=== PATIENT | female | born 1985 | race Asian ===

== ENCOUNTER 2021-12-09 18:58 | Observation (INO) | payer OTHER, SELFPAY ==
[2021-12-09] VITALS (46 sets, daily range): BP systolic 98–184; BP diastolic 49–98; PULSE 82–164; RESP 0–40; TEMP 36.8; O2SAT 97–100; BMI 21.9
--- NOTE | 2021-12-09 19:04 | ED_ITS ---
HPI - Allergic Reaction General Chief complaint: Allergic Reaction Stated complaint: allergic reaction, SOB Time Seen by Provider: 12/09/21 19:03 Source: patient Mode of arrival: Ambulatory Limitations: no limitations History of Present Illness HPI narrative: This is a 36-year-old female with history of shellfish and alcohol sensitivity she states usually she just gets itching. She had both today at the same time about an hour prior to arrival about 30 minutes after that developed cough some narrowing or tightness sensation in her upper airway some shortness of breath in her chest and flushing. Patient denies any hives currently. She states she sort of coughing and vomited once from that. She denies any lip or tongue swelling currently. She feels like her airway is not quite as tight. She denies chest pain. She denies diarrhea. Patient states she has had both in conjunction in the past and not had this much of an reaction before. Related Data Allergies Allergy/AdvReac Type Severity Reaction Status Date / Time emerson Allergy Verified 12/09/21 19:05 shellfish derived Allergy Verified 12/09/21 19:05 Review of Systems Review of Systems ROS Unobtainable: All systems reviewed & are unremarkable except as noted in HPI and below Patient History Medical History Chronic migraine Enzyme disorder History of shingles Shellfish allergy Social History household members: significant other Smoking Status: Never smoker alcohol intake: current Exam Narrative Exam Narrative: GEN: well nourished, well appearing female, alert and oriented x 3, patient appears to be in moderate distress, patient appears flushed HEENT: Atraumatic, pupils are equal round reactive to light, extraocular movements are intact, nares are clear, TMs are clear with no fluid, there is no conjunctival pallor. Throat is clear without any exudates, erythema, tonsillar enlargement or uvular deviation, no swelling of lips, tongue or oral airway appreciated. HEART: Regular rate and rhythm without murmur, clicks, rubs. LUNGS:Lungs clear to auscultation, no wheezes, rales, crackles, chest moves symmetrically, patient does have dry cough. ABD:bowel sounds normal, soft, non-tender, no guarding, rebound, rigidity, no masses noted, no hepatosplenomegaly MSCL: Non-tender, no muscle atrophy, muscles strength 5/5 upper and lower extremities, full range of motion, normal gait NEURO:CN 2-12 intact, sensation rocky Initial Vital Signs Initial Vital Signs: Vital Signs Temperature 98.2 F 12/09/21 19:02 Pulse Rate 140 H 12/09/21 19:02 Respiratory Rate 40 H 12/09/21 19:02 Blood Pressure 153/88 H 12/09/21 19:02 Pulse Oximetry 97 12/09/21 19:02 Oxygen Delivery Method 12/09/21 19:02 Procedures Intubation Time out performed: Yes sedative: Ketamine (140) Mg Given: 140 paralytic: Succinylcholine (150) Mg Given: 150 Laryngoscope: fiber optic video scope ET Tube Size: 7 ET Tube Uncuffed: No Tube Secured Depth (cm): 22 Tube Secured Location: teeth Tube Placement Confirmation: Visualized tube passing through cords, Equal breath sounds bilaterally, No breath sounds over epigastrium, Confirmation by capnometry and Chest Xray Patient Tolerated Procedure: Well Course Orders Ordered: Acetaminophen (Acetaminophen 650 Mg Supp) 650 mg ME Q4HR PRN PRN Reason: Fever/Mild Pain (1-3) Chlorhexidine Gluconate (Chlorhexidine Gluconate 15 Ml Cup) 15 ml PO Q6HR [facility] Last Admin: 12/09/21 23:33 Dose: 15 ml Documented By: SOREN Dexamethasone (Dexamethasone 4 Mg/Ml Vial) 4 mg IV Q6HR [facility] Last Admin: 12/09/21 23:33 Dose: 4 mg Documented By: SOREN Diphenhydramine HCl (Diphenhydramine 50 Mg/Ml Vial) 25 mg IV TID [facility] Last Admin: 12/10/21 01:05 Dose: 25 mg Documented By: SOREN Enoxaparin Sodium (Enoxaparin 40 Mg/0.4 Ml Syringe) 40 mg SUBCUT DAILY [facility] Famotidine (Famotidine 20 Mg/2 Ml Vial) 20 mg IV BID [facility] Fentanyl (Fentanyl 100 Mcg/2 Ml Inj) 25 mcg IV Q1H PRN PRN Reason: Pain, Severe (7-10) Last Admin: 12/10/21 03:21 Dose: 25 mcg Documented By: Admin: 12/10/21 01:05 Dose: 25 mcg Documented By: Admin: 12/09/21 23:25 Dose: 25 mcg Documented By: Admin: 12/09/21 21:45 Dose: 25 mcg Documented By: Admin: 12/09/21 20:43 Dose: 25 mcg Documented By: AT Propofol (Propofol) 1,000 mg in 100 mls @ 1.905 mls/hr IV TITRATE OMARI; Protocol Last Admin: 12/10/21 01:38 Dose: 50 mcg/kg/min, 19.051 mls/hr Documented By: Titration: 12/10/21 00:52 Dose: 50 mcg/kg/min, 19.051 mls/hr Documented By: Titration: 12/09/21 22:10 Dose: 50 mcg/kg/min, 19.051 mls/hr Documented By: Titration: 12/09/21 22:03 Dose: 196.84 mcg/kg/min, 75 mls/hr Documented By: Titration: 12/09/21 21:33 Dose: 196.84 mcg/kg/min, 75 mls/hr Documented By: Admin: 12/09/21 20:15 Dose: 5 mcg/kg/min, 1.905 mls/hr Documented By: KMW Sodium Chloride (Normal Saline 0.9%) 1,000 mls @ 100 mls/hr IV CONT OMARI Stop: 12/10/21 08:00 Last Admin: 12/09/21 22:41 Dose: 100 mls/hr Documented By: SOREN Ketorolac Tromethamine (Ketorolac 30 Mg/Ml Vial) 15 mg IV Q6H PRN PRN Reason: Pain, Moderate (4-10) Stop: 12/12/21 20:44 Naloxone HCl (Naloxone 0.4 Mg/Ml Vial) 0.1 mg IV Q2MIN PRN PRN Reason: Opiate Reversal Ondansetron HCl (Ondansetron 4 Mg/2 Ml Inj) 4 mg IV Q8HR PRN PRN Reason: Nausea And Vomiting Discontinued Medications Diphenhydramine HCl (Diphenhydramine 50 Mg/Ml Vial) 25 mg IV NOW ONE Stop: 12/09/21 19:25 Last Admin: 12/09/21 19:36 Dose: 25 mg Documented By: BALWINDER Epinephrine (Racepinephrine 0.5 Ml Neb) 0.5 ml INH NOW ONE Stop: 12/09/21 19:40 Last Admin: 12/09/21 19:41 Dose: 0.5 ml Documented By: CHALO Epinephrine HCl (Epinephrine 1 Mg/Ml) 0.5 mg IM NOW ONE Stop: 12/09/21 19:04 Last Admin: 12/09/21 19:08 Dose: 0.5 mg Documented By: WILLIAM Epinephrine HCl (Epinephrine 1 Mg/Ml) 0.5 mg IM NOW ONE Stop: 12/09/21 19:33 Last Admin: 12/09/21 19:36 Dose: 0.5 mg Documented By: BALWINDER Epinephrine HCl (Epinephrine 1 Mg/Ml) 0.5 mg IM NOW ONE Stop: 12/09/21 19:43 Last Admin: 12/09/21 19:46 Dose: 0.5 mg Documented By: BALWINDER Famotidine (Famotidine 20 Mg/2 Ml Vial) 20 mg IV NOW [facility] Last Admin: 12/09/21 19:08 Dose: 20 mg Documented By: WILLIAM Sodium Chloride (Normal Saline 0.9%) 1,000 mls @ 1,000 mls/hr IV BOLUS PRN PRN Reason: Fluid replacement Last Admin: 12/09/21 19:37 Dose: 1,000 mls/hr Documented By: BALWINDER Methylprednisolone (Methylprednisolone 125 Mg/2 Ml Vial) 125 mg IV NOW ONE Stop: 12/09/21 19:04 Last Admin: 12/09/21 19:08 Dose: 125 mg Documented By: WILLIAM Ondansetron HCl (Ondansetron 4 Mg/2 Ml Inj) 4 mg IV NOW ONE Stop: 12/09/21 19:42 Last Admin: 12/09/21 19:42 Dose: 4 mg Documented By: BALWINDER Pantoprazole Sodium (Pantoprazole 40 Mg Vial) 40 mg IV DAILY [facility] Vital Signs Vital signs: Vital Signs - 8 hr 12/09/21 19:02 12/09/21 19:21 12/09/21 19:48 Temperature 98.2 F Pulse Rate 140 H 154 H 143 H Respiratory Rate 40 H 22 24 Blood Pressure 153/88 H 155/84 H Blood Pressure [Right Arm] 153/80 H Pulse Oximetry 97 99 100 Oxygen Delivery Method Room Air Room Air Room Air 12/09/21 19:55 12/09/21 20:04 12/09/21 20:08 Temperature Pulse Rate 149 H 157 H 160 H Respiratory Rate 26 H 16 16 Blood Pressure Blood Pressure [Right Arm] 160/84 H 174/92 H 184/98 H Pulse Oximetry 100 99 Oxygen Delivery Method Room Air Ambu Bag Mechanical Ventilation 12/09/21 20:16 Temperature Pulse Rate 163 H Respiratory Rate 16 Blood Pressure Blood Pressure [Right Arm] 124/88 Pulse Oximetry 100 Oxygen Delivery Method Mechanical Ventilation MDM - Allergic Reaction Lab Data Result diagrams: 12/10/21 01:20 12/10/21 01:20 MDM Narrative Medical decision making narrative: This is a 36-year-old female had allergic reaction to shellfish with alcohol she is known sensitivities to both but states she usually just gets itching. Patien t felt tight in her airway. She took 50 mg of Benadryl prior to arrival she received Pepcid, Solu-Medrol and epinephrine IM. On recheck about 15 minutes later patient is feeling improved although still tachycardic and flushed. On recheck patient is worsening again she would 2 additional dose of epinephrine racemic epi but continues to feel tight she had some improvement in stridor that developed but did not resolve decision was made to intubate for airway protection. Patient was quite swollen on intubation. 7- 0 ET tube was placed 22 at the teeth. Critical Care Time Critical Care Time Critical Care Time: Yes Total Critical Care Time: 40 Attestation: The high probability of a clinically significant, sudden or life threatening deterioration of the [] system(s) required my full and direct attention, intervention and personal management. The aggregate critical care time was [] minutes. This time is in addition to time spent performing reported procedures but includes the following: [x] Data Review and interpretation [x] Patient assessment and monitoring of vital signs [x] Documentation [x] Medication orders and management Discharge Plan Departure Patient Disposition: Admitted As Inpatient Clinical Impression: Anaphylaxis Admit Date/Time: 12/09/21 20:26 Admit Provider: Keila Gibson
[2021-12-09] MEDS: methylPREDNISolone 125 MG/2 ML VIAL IV (19:08)
[2021-12-09] MEDS: FAMOTIDINE 20 MG/2 ML VIAL IV (19:08)
[2021-12-09] MEDS: EPINEPHrine 1 MG/ML 0.5 MG IM ×3 (19:08→19:46)
[2021-12-09] MEDS: diphenhydrAMINE 50 MG/ML VIAL 25 MG IV (19:36)
[2021-12-09] MEDS: SODIUM CHLORIDE 0.9% 1,000 ML 1000 ML IV (19:37)
[2021-12-09] MEDS: RACEPINEPHRINE 0.5 ML NEB INH ×2 (19:38→19:41)
[2021-12-09] MEDS: ONDANSETRON 4 MG/2 ML INJ IV (19:42)
--- NOTE | 2021-12-09 19:54 | PC.NURSE ---
RT remains at bedside. Patient tachypnic however no stridors noted.
--- NOTE | 2021-12-09 19:58 | PC.NURSE ---
Patient appears to be worsening, more tachypnic, verbalizes unable to swallow secretions. MD arrives at bedside for reassessment. Preparing to intubate
[2021-12-09] MEDS: KETAMINE 500 MG/5 ML INJ (20:02)
[2021-12-09] MEDS: MIDAZOLAM 5 MG/ML VIAL (20:05)
--- NOTE | 2021-12-09 20:11 | DI.RAD.S_ITS ---
PROCEDURE: XR CHEST 1V INDICATIONS: post intubation TECHNIQUE: One view of the chest was acquired. COMPARISON: None. FINDINGS: Surgical changes and devices: Endotracheal tube in normal position Lungs and pleura: Lungs are clear. No pleural effusions or pneumothorax. Mediastinum: Mediastinal contours appear normal. Heart size is normal. Bones and chest wall: No suspicious bony lesions. Overlying soft tissues appear unremarkable. IMPRESSION: Normal positioning of the endotracheal tube. No acute disease found. Dictated by: Jake Moe M.D. on 12/09/2021 at 20:38 Approved by: Jake Moe M.D. on 12/09/2021 at 20:39
[2021-12-09] MEDS: propofoL 1,000 MG/100 ML VIAL 1.905 MG IV (20:15)
--- NOTE | 2021-12-09 20:37 | DI.RAD.S_ITS ---
PROCEDURE: XR CHEST 1V INDICATIONS: post OGT placement TECHNIQUE: One view of the chest was acquired. COMPARISON: [facility], CR, XR CHEST 1V, 12/09/2021, 20:07. FINDINGS: Surgical changes and devices: An esophagogastric tube has been placed coiling within the gastric cardia and body and extending into the gastric body/antrum junction area. Lungs and pleura: Lungs are clear. No pleural effusions or pneumothorax. Mediastinum: Mediastinal contours appear normal. Heart size is normal. Bones and chest wall: No suspicious bony lesions. Overlying soft tissues appear unremarkable. IMPRESSION: Normal positioning of esophagogastric tube. Dictated by: Jake Moe M.D. on 12/09/2021 at 20:48 Approved by: Jake Moe M.D. on 12/09/2021 at 20:49
[2021-12-09] MEDS: fentaNYL 100 MCG/2 ML INJ 25 MCG IV ×3 (20:43→23:25)
[2021-12-09 21:21] LABS: COVID19 -Nasal RAPID Negative (Negative)
[2021-12-09 21:32] LABS: HCO3 ABG 15 mmol/L (22-26); PCO2 ABG 33.5 mmHg (35-45); PO2 ABG 211 mmHg (80-100)
[2021-12-09 21:33] LABS: Oxygen Saturation ABG 100 % (95-100); TCO2 ABG 16 mmol/L (21-31)
[2021-12-09 21:34] LABS: Fractionated Inspired Oxygen 40; pH ABG 7.25 (7.35-7.45)
--- NOTE | 2021-12-09 21:35 | PC.NURSE ---
Report given to [facility]
--- NOTE | 2021-12-09 22:25 | PC.NURSE ---
2019 Patient requiring 20mg propofol bolus every 5 minutes for sedation. MD aware. RT remains at bedside. Titrating propofol drip up after every propofol bolus. Vital signs stable
[2021-12-09] MEDS: SODIUM CHLORIDE 0.9% 1,000 ML 100 ML IV (22:41)
[2021-12-09] MEDS: CHLORHEXIDINE GLUCONATE 15 ML CUP PO (23:33)
[2021-12-09] MEDS: DEXAMETHASONE 4 MG/ML VIAL IV (23:33)
[2021-12-10] VITALS (33 sets, daily range): BP systolic 114–166; BP diastolic 61–98; PULSE 57–89; RESP 0–28; TEMP 36.6–36.7; O2SAT 98–100
[2021-12-10] MEDS: fentaNYL 100 MCG/2 ML INJ 25 MCG IV ×4 (01:05→07:22)
[2021-12-10] MEDS: diphenhydrAMINE 50 MG/ML VIAL 25 MG IV (01:05)
[2021-12-10] MEDS: propofoL 1,000 MG/100 ML VIAL 19.051 MG IV (01:38)
[2021-12-10 01:41] LABS: Add Manual Diff / Slide Review NO; Basophils Absolute Auto 0 /uL (0-100); Basophils Percent Auto 0.1 % (0-2); Eosinophils Absolute Auto 0 /uL (0-450); Hematocrit 38.4 % (36-46); Hemoglobin 13.1 g/dL (12.0-16.0); Lymphocytes Absolute Auto 1400 /uL (1100-4500); Lymphocytes Percent Auto 6.7 % (25-40); Mean Corpuscular Volume 91.2 fL (80-100); Monocytes Absolute Auto 200 /uL (0-900); Monocytes Percent Auto 1.1 % (3-14); Neutrophils Absolute Auto 19100 /uL (1500-7000); Neutrophils Percent Auto 92.1 % (50-75); Platelet Count 253 X10^3/uL (150-400); Red Blood Cell Count 4.21 X10^6/uL (4.0-5.2); Red Cell Distribution Width 13.2 % (11.6-14.8); White Blood Cell Count 20.7 X10^3/uL (4.5-11.0)
[2021-12-10 01:53] LABS: Albumin 3.8 g/dL (3.5-5.0); Albumin Globulin Ratio 1.2 (1.0-2.8); Alkaline Phosphatase 61 U/L (38-126); Aspartate Aminotransferase 22 IU/L (14-36); BUN Creatinine Ratio 17.6 (6-22); Bilirubin Total 0.6 mg/dL (0.2-1.3); Blood Urea Nitrogen 9 mg/dL (7-17); Calcium 8.3 mg/dL (8.4-10.2); Carbon Dioxide 17 mmol/L (22-32); Chloride 108 mmol/L (98-107); Estimated Glomerular Filt Rate > 60 mL/min (>60); Globulin 3.1 g/dL (1.7-4.1); Glucose 150 mg/dL (70-100); HEMOLYSIS < 15 (0-50); Lipase 67 U/L (23-300); Sodium 137 mmol/L (137-145); Total Protein 6.9 g/dL (6.3-8.2)
[2021-12-10 01:55] LABS: Magnesium 1.7 mg/dL (1.6-2.3)
[2021-12-10 01:59] LABS: Alanine Aminotransferase 23 IU/L (<35)
[2021-12-10 02:10] LABS: HCO3 ABG 17 mmol/L (22-26); Oxygen Saturation ABG 100 % (95-100); PCO2 ABG 22.8 mmHg (35-45); PO2 ABG 177 mmHg (80-100); TCO2 ABG 18 mmol/L (21-31); pH ABG 7.49 (7.35-7.45)
[2021-12-10 02:15] LABS: Fractionated Inspired Oxygen 30
--- NOTE | 2021-12-10 04:46 | PM.HP.1 ---
History of Present Illness History of Present Illness Date Patient Seen: 12/09/21 Time Patient Seen: 21:01 Chief complaint: allergic reaction, SOB Narrative: Elidia Triana?is a 36-year-old female with history of migraines, shellfish and alcohol allergy (which she reported as usually just gets itchy).? She had both shellfish and alcohol today at the same time about an hour prior to arrival in the ED, about 30 minutes after that developed cough some narrowing or tightness sensation in her upper airway some shortness of breath in her chest and flushing.?In the ED the patient denied any hives.?She complained of coughing and vomited x1.? She initially denied lip or tongue swelling, chest pain, diarrhea, and that her chest did not feel as tight as previous allergic reactions. Dr. Leach ED reported that the patient had taken approximately a total of 100 mg of Benadryl, 5 doses of epinephrine, a dose of famotidine, and 125 mg of methylprednisone. Despite this the patient's airway continued to swell and the patient became tachycardic increasing shortness of breath and work of breathing. The patient was alert and orientated and consented to intubation. At the time of admit patient was afebrile temp 98.2?, hypertensive BP 159/72, tachycardic HR 144, and on a ventilator. No labs had been completed in ED or in chart at the time of admit. I requested stat labs be completed from Dr. Leach. Patient admitted for acute respiratory failure secondary to anaphylactic shock resulting in intubation, ICU observation. Upon admit examination patient is on a propofol drip and had received multiple fentanyl pushes is unconscious on a ventilator unable to participate in HPI, ROS, family history, surgical history or medications. Patient History Medical History Chronic migraine Enzyme disorder History of shingles Shellfish allergy Family & Social History Social History: household members significant other fiancee Prior Living Arrangements Apartment/Condo Safety & Behavioral: Feels Safe in Current Yes Environment Been Physically Hurt or No Threatened By a Person Tobacco & Substance use: Smoking Status Never smoker alcohol intake current alcohol intake frequency holiday/special occasion Substance Use Type prescription drug Meds Home Medications and Allergies Allergies Allergy/AdvReac Type Severity Reaction Status Date / Time emerson Allergy Verified 12/09/21 19:05 shellfish derived Allergy Verified 12/09/21 19:05 Review of Systems Review of Systems Narrative: Patient unable to participate in ROS due to medication sedation for intubation/ventilator. Exam Vital Signs (past 8 hours): - 12/09/21 20:50 12/09/21 20:50 12/09/21 20:55 Temperature Pulse Rate 133 H Respiratory Rate 20 Blood Pressure 104/51 L 107/54 L Pulse Oximetry 100 Oxygen Delivery Method 12/09/21 20:55 12/09/21 21:00 12/09/21 21:00 Temperature Pulse Rate 130 H 138 H Respiratory Rate 20 20 Blood Pressure 131/60 Pulse Oximetry 100 100 Oxygen Delivery Method Mechanical Ventilation Mechanical Ventilation 12/09/21 21:05 12/09/21 21:05 12/09/21 21:10 Temperature Pulse Rate 128 H Respiratory Rate 20 Blood Pressure 110/53 L 105/53 L Pulse Oximetry 99 Oxygen Delivery Method 12/09/21 21:10 12/09/21 21:15 12/09/21 21:15 Temperature Pulse Rate 126 H 133 H Respiratory Rate 20 20 Blood Pressure 120/58 L Pulse Oximetry 99 99 Oxygen Delivery Method 12/09/21 21:20 12/09/21 21:20 12/09/21 21:25 Temperature Pulse Rate 126 H Respiratory Rate 20 Blood Pressure 111/58 L 101/51 L Pulse Oximetry 99 Oxygen Delivery Method 12/09/21 21:25 12/09/21 21:30 12/09/21 21:30 Temperature Pulse Rate 124 H 131 H Respiratory Rate 20 20 Blood Pressure 124/60 Pulse Oximetry 99 99 Oxygen Delivery Method Mechanical Ventilation 12/09/21 21:35 12/09/21 21:35 12/09/21 21:40 Temperature Pulse Rate 126 H Respiratory Rate 20 Blood Pressure 117/58 L 107/52 L Pulse Oximetry 99 Oxygen Delivery Method 12/09/21 21:40 12/09/21 21:45 12/09/21 21:45 Temperature Pulse Rate 123 H 132 H Respiratory Rate 20 21 Blood Pressure 141/64 H Pulse Oximetry 99 99 Oxygen Delivery Method Mechanical Ventilation 12/09/21 21:53 12/09/21 21:53 12/09/21 21:55 Temperature Pulse Rate 124 H Respiratory Rate 20 Blood Pressure 134/62 111/58 L Pulse Oximetry 99 Oxygen Delivery Method 12/09/21 21:55 12/09/21 22:00 12/09/21 22:00 Temperature Pulse Rate 122 H 122 H Respiratory Rate 20 20 Blood Pressure 111/56 L Pulse Oximetry 99 99 Oxygen Delivery Method Mechanical Ventilation 12/09/21 22:01 12/09/21 22:01 12/09/21 22:00 Temperature 98.2 F Pulse Rate 124 H Respiratory Rate 20 Blood Pressure 126/62 Pulse Oximetry Oxygen Delivery Method 12/09/21 22:05 12/09/21 22:05 12/09/21 22:10 Temperature Pulse Rate 120 H Respiratory Rate Blood Pressure 119/60 98/49 L Pulse Oximetry 99 Oxygen Delivery Method 12/09/21 22:10 12/09/21 22:15 12/09/21 22:15 Temperature Pulse Rate 124 H 118 H Respiratory Rate 18 20 Blood Pressure 113/63 Pulse Oximetry 100 99 Oxygen Delivery Method 12/09/21 22:30 12/09/21 22:30 12/09/21 22:45 Temperature Pulse Rate 109 H 108 H Respiratory Rate 20 20 Blood Pressure 104/54 L Pulse Oximetry 98 100 Oxygen Delivery Method 12/09/21 22:45 12/09/21 23:00 12/09/21 23:00 Temperature Pulse Rate 93 H Respiratory Rate 20 Blood Pressure 151/85 H 117/70 Pulse Oximetry 98 Oxygen Delivery Method 12/09/21 23:15 12/09/21 23:15 12/09/21 23:17 Temperature Pulse Rate 84 82 Respiratory Rate 20 20 Blood Pressure 116/70 Pulse Oximetry 99 99 Oxygen Delivery Method 12/10/21 00:00 12/10/21 01:00 12/10/21 00:59 Temperature 98.1 F Pulse Rate Respiratory Rate Blood Pressure 166/93 H Pulse Oximetry Oxygen Delivery Method Mechanical Ventilation 12/10/21 00:59 12/10/21 01:34 12/10/21 01:40 Temperature Pulse Rate 77 67 58 L Respiratory Rate 28 H 26 H 20 Blood Pressure Pulse Oximetry 100 100 100 Oxygen Delivery Method 12/10/21 01:40 12/10/21 01:45 12/10/21 01:45 Temperature Pulse Rate 58 L Respiratory Rate 20 Blood Pressure 136/63 133/68 Pulse Oximetry 100 Oxygen Delivery Method 12/10/21 02:00 12/10/21 02:00 12/10/21 02:03 Temperature Pulse Rate 58 L 59 L Respiratory Rate 16 16 Blood Pressure 126/69 Pulse Oximetry 99 100 Oxygen Delivery Method 12/10/21 02:15 12/10/21 02:15 12/10/21 02:30 Temperature Pulse Rate 59 L 60 Respiratory Rate 16 16 Blood Pressure 123/70 Pulse Oximetry 99 99 Oxygen Delivery Method 12/10/21 02:30 12/10/21 03:00 12/10/21 03:00 Temperature Pulse Rate 61 Respiratory Rate 16 Blood Pressure 121/71 123/69 Pulse Oximetry 99 Oxygen Delivery Method 12/10/21 03:02 12/10/21 04:00 12/10/21 04:00 Temperature Pulse Rate 61 63 Respiratory Rate 16 19 Blood Pressure 123/65 Pulse Oximetry 99 99 Oxygen Delivery Method 12/10/21 04:37 Temperature Pulse Rate 66 Respiratory Rate 14 Blood Pressure Pulse Oximetry 99 Oxygen Delivery Method Oxygen Delivery Method Mechanical Ventilation Narrative Exam Narrative: General: Patient appears a well-developed, well-nourished female, sedated, intubated, hemodynamically stable, in no distress at this time. HEENT: Normocephalic, atraumatic Neck is supple and symmetric, trachea is midline, Negative for JVD Chest: respiratory function is stable, ventilated. Lungs: Auscultation of all lung evans are clear without adventitious sounds, wheezes, rhonchi, or rales. Cardio: S1 & S2 with regular rate and rhythm without murmur, rubs, or gallops, no carotid bruit, no cardiac pulsations present. Abdomen: Soft Bowel sounds are present in all 4 quadrants. Musculoskeletal: Muscle strength and tone appear equal within normal limits, no deformity, crepitus, effusions, cyanosis, clubbing or edema present. intact radial and pedal pulses are normal. Skin: Warm dry and intact without rashes, ulcerations or petechiae. Neuro: Sedated Psych: Unable to assess due to sedation & ventilator. Objective Labs Result Diagrams: 12/10/21 01:20 12/10/21 01:20 Labs: Laboratory Results - last 24 hr 12/09/21 12/09/21 12/09/21 20:36 21:17 22:45 WBC RBC Hgb Hct MCV MCH MCHC RDW Plt Count Neut % (Auto) Lymph % (Auto) [place] % (Auto) Eos % (Auto) Baso % (Auto) Neut # (Auto) Lymph # (Auto) [place] # (Auto) Eos # (Auto) Baso # (Auto) ABG pH 7.25 L* ABG pCO2 33.5 L ABG pO2 211 H ABG HCO3 15 L ABG Total CO2 16 L ABG O2 Saturation 100 ABG Base Excess -12.0 L FiO2 40 Sodium Potassium Chloride Carbon Dioxide BUN Creatinine Estimated GFR BUN/Creatinine Ratio Glucose Calcium Magnesium Total Bilirubin AST ALT Alkaline Phosphatase Total Protein Albumin Globulin Albumin/Globulin Ratio Lipase Nasal Screen MRSA (PCR) Negative for mrsa SARS-CoV-2 (PCR) Negative 12/10/21 12/10/21 12/10/21 01:20 01:20 01:20 WBC 20.7 H RBC 4.21 Hgb 13.1 Hct 38.4 MCV 91.2 MCH 31.0 MCHC 34.0 RDW 13.2 Plt Count 253 Neut % (Auto) 92.1 H Lymph % (Auto) 6.7 L [place] % (Auto) 1.1 L Eos % (Auto) 0.0 L Baso % (Auto) 0.1 Neut # (Auto) 98020 H Lymph # (Auto) 1400 [place] # (Auto) 200 Eos # (Auto) 0 Baso # (Auto) 0 ABG pH ABG pCO2 ABG pO2 ABG HCO3 ABG Total CO2 ABG O2 Saturation ABG Base Excess FiO2 Sodium 137 Potassium 4.0 Chloride 108 H Carbon Dioxide 17 L BUN 9 Creatinine 0.51 L Estimated GFR > 60 BUN/Creatinine Ratio 17.6 Glucose 150 H Calcium 8.3 L Magnesium 1.7 Total Bilirubin 0.6 AST 22 ALT 23 Alkaline Phosphatase 61 Total Protein 6.9 Albumin 3.8 Globulin 3.1 Albumin/Globulin Ratio 1.2 Lipase 67 Nasal Screen MRSA (PCR) SARS-CoV-2 (PCR) 12/10/21 01:50 WBC RBC Hgb Hct MCV MCH MCHC RDW Plt Count Neut % (Auto) Lymph % (Auto) [place] % (Auto) Eos % (Auto) Baso % (Auto) Neut # (Auto) Lymph # (Auto) [place] # (Auto) Eos # (Auto) Baso # (Auto) ABG pH 7.49 H ABG pCO2 22.8 L* ABG pO2 177 H ABG HCO3 17 L ABG Total CO2 18 L ABG O2 Saturation 100 ABG Base Excess -6.0 L FiO2 30 Sodium Potassium Chloride Carbon Dioxide BUN Creatinine Estimated GFR BUN/Creatinine Ratio Glucose Calcium Magnesium Total Bilirubin AST ALT Alkaline Phosphatase Total Protein Albumin Globulin Albumin/Globulin Ratio Lipase Nasal Screen MRSA (PCR) SARS-CoV-2 (PCR) Assessment & Plan Assessment & Plan narrative: Elidia Issais a 36-year-old female with history of migraines, shellfish and alcohol allergy, who was reported to have an intake of both shellfish and alcohol today, presented to the ED developed acute respiratory distress secondary to anaphylactic shock, and was quickly intubated. As per the patient's fiancee at the bedside she takes no regular medications and has no other significant medical history other than chronic migraines. Will maintain the patient on a ventilator overnight, dosing through the night to reduce inflammatory response -likely be able to extubate in the morning. 1. Acute respiratory failure secondary to anaphylactic shock from exposure to shellfish and alcohol, acute, with elevated blood pressure and tachycardia, acute, present on admission -patient had a known allergy to alcohol and shellfish, this was reported to be her 1st anaphylactic reaction. -provided education to the patient's fiancee who is at the bedside, that allergic reactions can continue to intensify with repeated exposures, and that going forward the patient is to avoid shellfish and alcohol. -ordered STAT: ABGs, CBC, CMP, chest x-ray, respiratory consult- will review once available. -tele flying shear operator consult placed and notified -patient admitted under ventilator/ICU protocol -At the bedside for admit: Patient's elevated blood pressure has resolved BP 111/58, patient remains tachycardic likely secondary to steroids and epinephrine but improved with a heart rate of 126. -Continue propofol drip. -initial ventilator settings total volume 450 the rate of to FiO2 30, O2 sat 99%, peep of 5- Resp will work to titrate her settings down based on ABG results. -Repeat ABG's, CBC, CMP in am. -Decadron 4 mg IV q.6 hours, Benadryl IV t.i.d., famantadine, daily, Tylenol suppository as needed -Fan placed in ED, strict I&O -BS Q6 HR while NPO on Vent. -Monitored on Tele. -Requested ED place a central line- in the event that the patient's condition worsens and requires pressors. Code status:Full Surrogate decision maker: Delta CAST PCR:Negative DVT/VTE prophylaxis: Lovenox and SCDs Disposition: Patient admitted to the ICU observation, expected length of stay less than 2 midnights. Because patient is visiting and not in our system, and was sedated and intubated upon admit I was unable to obtain any medical history, HPI, ROS, family history, surgical history, code status, or surrogate decision maker from the patient. All information I obtained was from the patient's fiancee Keith who is at the bedside. Exception-the patient is not eligible for medication reconciliation; the patient is in an emergent medical situation were delaying treatment would jeopardize the patient's health. Time Spent With Patient Critical Care time: I spent a total of [] minutes of critical care time on this patient's care today; this time is exclusive of procedural time. Quality VTE Deep Vein Thrombosis/Pulmonary Embolism Present on Admission: No
--- NOTE | 2021-12-10 05:23 | PC.NURSE ---
Shift Note: At 2200H, patient brought in from the ED by stretcher, accompanied by the family, RT and 2RNs, patient is intubated to portable vent at 50% FIO2 with O2 sat 98%, sedated with propofol at 79mls/hr, HR 120s, SBP 90s MAP 65, moved to bed and patient connected to monitoring equipment and bedside vent, propofol titrated to 50mcg/hr, maintaining RAAS -1 to -2, restraint applied as patient has episode of extreme restlessness and agitation. Breath sounds are clear bilaterally. Patient was seen and examined by SENIOR PRODUCT DEVELOPMENT MANAGER Arthur. OGT assessed placement, intact and patent and connected to low int suction with minimal gastric output. Fan cath in placed with adequate amount of clear yellowish urine output. Will continue to monitor. At 2330H, IV therapy nurse came and attempted twice to place PICC access but unsuccessful and informed by this nurse that another IV nurse will come in the morning to place PICC line, provider and nurse coordinator notified.
[2021-12-10] MEDS: DEXAMETHASONE 4 MG/ML VIAL IV ×2 (05:57→12:10)
[2021-12-10] MEDS: CHLORHEXIDINE GLUCONATE 15 ML CUP PO (05:57)
--- NOTE | 2021-12-10 06:20 | RT ---
[place]ano recieved from ER on Vent settings VT 450, rate of 20, PEEP of 5, and FIO2 of 30%. Intubated with 7.0 tube secured at 2 at teeth, with good placement per xray. BS mostly just clear. Lavaged with small amount of NS and suctioined for sputum. Small amount clear mucoid with slightly mabry coloration. Repeat ABG after Pic line placed, with improving metablolic acidosis, Rate decreased to 16 as PCO2 22.7 and ETCO2 also reading 22. FIO2 decreased to 21% as PO2 177 on 30%. Rate again decreased after 0400 check along with decreasing Vt to 400 as ETCO2 only improved to 24. All changes discussed with and approved by MD. ETCO2 up to 30 after last changes. Oral care given Q2 with vent checks. Patient resting quietly.
[2021-12-10] MEDS: propofoL 1,000 MG/100 ML VIAL 15.241 MG IV (07:24)
--- NOTE | 2021-12-10 08:10 | PM.PN.1 ---
Exam Vital Signs (past 8 hours): - 12/10/21 01:00 12/10/21 00:59 12/10/21 00:59 Temperature 98.1 F Pulse Rate 77 Respiratory Rate 28 H Blood Pressure 166/93 H Pulse Oximetry 100 12/10/21 01:34 12/10/21 01:40 12/10/21 01:40 Temperature Pulse Rate 67 58 L Respiratory Rate 26 H 20 Blood Pressure 136/63 Pulse Oximetry 100 100 12/10/21 01:45 12/10/21 01:45 12/10/21 02:00 Temperature Pulse Rate 58 L 58 L Respiratory Rate 20 16 Blood Pressure 133/68 Pulse Oximetry 100 99 12/10/21 02:00 12/10/21 02:03 12/10/21 02:15 Temperature Pulse Rate 59 L 59 L Respiratory Rate 16 16 Blood Pressure 126/69 Pulse Oximetry 100 99 12/10/21 02:15 12/10/21 02:30 12/10/21 02:30 Temperature Pulse Rate 60 Respiratory Rate 16 Blood Pressure 123/70 121/71 Pulse Oximetry 99 12/10/21 03:00 12/10/21 03:00 12/10/21 03:02 Temperature Pulse Rate 61 61 Respiratory Rate 16 16 Blood Pressure 123/69 Pulse Oximetry 99 99 12/10/21 04:00 12/10/21 04:00 12/10/21 04:37 Temperature Pulse Rate 63 66 Respiratory Rate 19 14 Blood Pressure 123/65 Pulse Oximetry 99 99 12/10/21 05:00 12/10/21 05:00 12/10/21 05:07 Temperature Pulse Rate 66 67 Respiratory Rate 14 14 Blood Pressure 114/61 Pulse Oximetry 99 99 12/10/21 06:00 12/10/21 06:00 12/10/21 06:15 Temperature Pulse Rate 63 60 Respiratory Rate 14 14 Blood Pressure 120/67 Pulse Oximetry 100 100 12/10/21 06:30 12/10/21 07:00 12/10/21 07:00 Temperature Pulse Rate 58 L 57 L Respiratory Rate 14 14 Blood Pressure 118/65 Pulse Oximetry 99 99 12/10/21 07:30 12/10/21 07:54 Temperature Pulse Rate 78 65 Respiratory Rate 22 19 Blood Pressure 145/81 H Pulse Oximetry 100 99 Oxygen Delivery Method Mechanical Ventilation Narrative Exam Narrative: General: Patient appears a well-developed, well-nourished female, sedated, intubated, hemodynamically stable, in no distress at this time. HEENT: Normocephalic, atraumatic Neck is supple and symmetric, trachea is midline, Negative for JVD Chest: respiratory function is stable, ventilated. Lungs: Auscultation of all lung evans are clear without adventitious sounds, wheezes, rhonchi, or rales. Cardio: S1 & S2 with regular rate and rhythm without murmur, rubs, or gallops, no carotid bruit, no cardiac pulsations present. Abdomen: Soft Bowel sounds are present in all 4 quadrants. Musculoskeletal: Muscle strength and tone appear equal within normal limits, no deformity, crepitus, effusions, cyanosis, clubbing or edema present. intact radial and pedal pulses are normal. Skin: Warm dry and intact without rashes, ulcerations or petechiae. Neuro: Sedated Psych: Unable to assess due to sedation & ventilator. Objective Labs Result Diagrams: 12/10/21 01:20 12/10/21 01:20 Labs: Laboratory Results - last 24 hr 12/09/21 12/09/21 12/09/21 20:36 21:17 22:45 WBC RBC Hgb Hct MCV MCH MCHC RDW Plt Count Neut % (Auto) Lymph % (Auto) [place] % (Auto) Eos % (Auto) Baso % (Auto) Neut # (Auto) Lymph # (Auto) [place] # (Auto) Eos # (Auto) Baso # (Auto) ABG pH 7.25 L* ABG pCO2 33.5 L ABG pO2 211 H ABG HCO3 15 L ABG Total CO2 16 L ABG O2 Saturation 100 ABG Base Excess -12.0 L FiO2 40 Sodium Potassium Chloride Carbon Dioxide BUN Creatinine Estimated GFR BUN/Creatinine Ratio Glucose Calcium Magnesium Total Bilirubin AST ALT Alkaline Phosphatase Total Protein Albumin Globulin Albumin/Globulin Ratio Lipase Nasal Screen MRSA (PCR) Negative for mrsa SARS-CoV-2 (PCR) Negative 12/10/21 12/10/21 12/10/21 01:20 01:20 01:20 WBC 20.7 H RBC 4.21 Hgb 13.1 Hct 38.4 MCV 91.2 MCH 31.0 MCHC 34.0 RDW 13.2 Plt Count 253 Neut % (Auto) 92.1 H Lymph % (Auto) 6.7 L [place] % (Auto) 1.1 L Eos % (Auto) 0.0 L Baso % (Auto) 0.1 Neut # (Auto) 65336 H Lymph # (Auto) 1400 [place] # (Auto) 200 Eos # (Auto) 0 Baso # (Auto) 0 ABG pH ABG pCO2 ABG pO2 ABG HCO3 ABG Total CO2 ABG O2 Saturation ABG Base Excess FiO2 Sodium 137 Potassium 4.0 Chloride 108 H Carbon Dioxide 17 L BUN 9 Creatinine 0.51 L Estimated GFR > 60 BUN/Creatinine Ratio 17.6 Glucose 150 H Calcium 8.3 L Magnesium 1.7 Total Bilirubin 0.6 AST 22 ALT 23 Alkaline Phosphatase 61 Total Protein 6.9 Albumin 3.8 Globulin 3.1 Albumin/Globulin Ratio 1.2 Lipase 67 Nasal Screen MRSA (PCR) SARS-CoV-2 (PCR) 12/10/21 01:50 WBC RBC Hgb Hct MCV MCH MCHC RDW Plt Count Neut % (Auto) Lymph % (Auto) [place] % (Auto) Eos % (Auto) Baso % (Auto) Neut # (Auto) Lymph # (Auto) [place] # (Auto) Eos # (Auto) Baso # (Auto) ABG pH 7.49 H ABG pCO2 22.8 L* ABG pO2 177 H ABG HCO3 17 L ABG Total CO2 18 L ABG O2 Saturation 100 ABG Base Excess -6.0 L FiO2 30 Sodium Potassium Chloride Carbon Dioxide BUN Creatinine Estimated GFR BUN/Creatinine Ratio Glucose Calcium Magnesium Total Bilirubin AST ALT Alkaline Phosphatase Total Protein Albumin Globulin Albumin/Globulin Ratio Lipase Nasal Screen MRSA (PCR) SARS-CoV-2 (PCR) [facility] Medical History Chronic migraine Enzyme disorder History of shingles Shellfish allergy Social History household members: significant other Smoking Status: Never smoker alcohol intake: current Assessment & Plan Assessment & Plan narrative: Elidia Issais a 36-year-old female with history of migraines, shellfish and alcohol allergy, who was reported to have an intake of both shellfish and alcohol today, presented to the ED developed acute respiratory distress secondary to anaphylactic shock, and was quickly intubated. As per the patient's fiancee at the bedside she takes no regular medications and has no other significant medical history other than chronic migraines. Will maintain the patient on a ventilator overnight, dosing through the night to reduce inflammatory response -likely be able to extubate in the morning. 1. Acute respiratory failure secondary to anaphylactic shock from exposure to shellfish and alcohol, acute, with elevated blood pressure and tachycardia, acute, present on admission -patient had a known allergy to alcohol and shellfish, this was reported to be her 1st anaphylactic reaction. -provided education to the patient's delta who is at the bedside, that allergic reactions can continue to intensify with repeated exposures, and that going forward the patient is to avoid shellfish and alcohol. -ordered STAT: ABGs, CBC, CMP, chest x-ray, respiratory consult- will review once available. -tele advance seal delivery system maintainer consult placed and notified -patient admitted under ventilator/ICU protocol -At the bedside for admit: Patient's elevated blood pressure has resolved BP 111/58, patient remains tachycardic likely secondary to steroids and epinephrine but improved with a heart rate of 126. -Continue propofol drip. -initial ventilator settings total volume 450 the rate of to FiO2 30, O2 sat 99%, peep of 5- Resp will work to titrate her settings down based on ABG results. -Repeat ABG's, CBC, CMP in am. -Decadron 4 mg IV q.6 hours, Benadryl IV t.i.d., famantadine, daily, Tylenol suppository as needed -Fan placed in ED, strict I&O -BS Q6 HR while NPO on Vent. -Monitored on Tele. -Requested ED place a central line- in the event that the patient's condition worsens and requires pressors. Code status:Full Surrogate decision maker: Delta CAST PCR:Negative DVT/VTE prophylaxis: Lovenox and SCDs Disposition: Patient admitted to the ICU observation, expected length of stay less than 2 midnights. Because patient is visiting and not in our system, and was sedated and intubated upon admit I was unable to obtain any medical history, HPI, ROS, family history, surgical history, code status, or surrogate decision maker from the patient. All information I obtained was from the patient's delta Parker who is at the bedside. Exception-the patient is not eligible for medication reconciliation; the patient is in an emergent medical situation were delaying treatment would jeopardize the patient's health. Time Spent With Patient Critical Care time: I spent a total of [] minutes of critical care time on this patient's care today; this time is exclusive of procedural time. Quality VTE Deep Vein Thrombosis/Pulmonary Embolism Present on Admission: No
[2021-12-10 08:57] LABS: Add Manual Diff / Slide Review NO; Basophils Absolute Auto 0 /uL (0-100); Eosinophils Absolute Auto 0 /uL (0-450); Hematocrit 41.1 % (36-46); Hemoglobin 14.2 g/dL (12.0-16.0); Lymphocytes Absolute Auto 1100 /uL (1100-4500); Lymphocytes Percent Auto 5.8 % (25-40); Mean Corpuscular HGB Conc 34.5 % (30-36); Mean Corpuscular Hemoglobin 31.8 PG (26-34); Mean Corpuscular Volume 92.2 fL (80-100); Monocytes Absolute Auto 300 /uL (0-900); Monocytes Percent Auto 1.5 % (3-14); Neutrophils Absolute Auto 16800 /uL (1500-7000); Neutrophils Percent Auto 92.7 % (50-75); Platelet Count 236 X10^3/uL (150-400); Red Blood Cell Count 4.46 X10^6/uL (4.0-5.2); Red Cell Distribution Width 13.4 % (11.6-14.8); White Blood Cell Count 18.1 X10^3/uL (4.5-11.0)
--- NOTE | 2021-12-10 09:06 | PM.CN.EICU ---
History of Present Illness Consult details IF CAMERA ACTIVATED, patient seen via real-time interactive audiovisual communication: Camera activated Chief complaint: allergic reaction, SOB Consent obtained for tele-womens volleyball coach care: Yes Patient Location: ICU Provider location (State): [place] Other participants/roles: RN, Narrative: 36 year old female with shellfish allergy, and likely slow acetylaltor due to etoh associated flushing, presenting to the ICU with anyphyalacic shock after eating shellfish and was emergently intubated in the ER. On lab review, she has a non anion gap acidosis likely from hyperchloremia, and an eleavted wbc, reactive + steroids. This AM on my video eval she was awake folllwing commands with + leak and was on minimal PSV - 5/5 PFSH Medical History Chronic migraine Enzyme disorder History of shingles Shellfish allergy Social History household members: significant other Smoking Status: Never smoker alcohol intake: current Current Medications Current Medications Medications: Visit Medications (administered) Generic Name Dose Route Start Last Admin Trade Name Freq PRN Reason Stop Dose Admin Chlorhexidine Gluconate 15 ml 12/10/21 00:00 12/10/21 05:57 Chlorhexidine Gluconate 15 Ml Cup PO 15 ml Q6HR OMARI Administration Dexamethasone 4 mg 12/10/21 00:00 12/10/21 05:57 Dexamethasone 4 Mg/Ml Vial IV 4 mg Q6HR OMARI Administration Diphenhydramine HCl 25 mg 12/10/21 01:00 12/10/21 01:05 Diphenhydramine 50 Mg/Ml Vial IV 25 mg TID OMARI Administration Fentanyl 25 mcg 12/09/21 20:36 12/10/21 07:22 Fentanyl 100 Mcg/2 Ml Inj IV 25 mcg Q1H PRN Administration Pain, Severe (7-10) Propofol 1,000 mg in 100 mls @ 1.905 mls/hr 12/09/21 20:15 12/10/21 08:01 Propofol IV 10 mcg/kg/min TITRATE OMARI 3.81 mls/hr Titration Protocol 5 MCG/KG/MIN Exam Vital Signs (past 8 hours): - 12/10/21 01:34 12/10/21 01:40 12/10/21 01:40 Pulse Rate 67 58 L Respiratory Rate 26 H 20 Blood Pressure 136/63 Pulse Oximetry 100 100 12/10/21 01:45 12/10/21 01:45 12/10/21 02:00 Pulse Rate 58 L 58 L Respiratory Rate 20 16 Blood Pressure 133/68 Pulse Oximetry 100 99 12/10/21 02:00 12/10/21 02:03 12/10/21 02:15 Pulse Rate 59 L 59 L Respiratory Rate 16 16 Blood Pressure 126/69 Pulse Oximetry 100 99 12/10/21 02:15 12/10/21 02:30 12/10/21 02:30 Pulse Rate 60 Respiratory Rate 16 Blood Pressure 123/70 121/71 Pulse Oximetry 99 12/10/21 03:00 12/10/21 03:00 12/10/21 03:02 Pulse Rate 61 61 Respiratory Rate 16 16 Blood Pressure 123/69 Pulse Oximetry 99 99 12/10/21 04:00 12/10/21 04:00 12/10/21 04:37 Pulse Rate 63 66 Respiratory Rate 19 14 Blood Pressure 123/65 Pulse Oximetry 99 99 12/10/21 05:00 12/10/21 05:00 12/10/21 05:07 Pulse Rate 66 67 Respiratory Rate 14 14 Blood Pressure 114/61 Pulse Oximetry 99 99 12/10/21 06:00 12/10/21 06:00 12/10/21 06:15 Pulse Rate 63 60 Respiratory Rate 14 14 Blood Pressure 120/67 Pulse Oximetry 100 100 12/10/21 06:30 12/10/21 07:00 12/10/21 07:00 Pulse Rate 58 L 57 L Respiratory Rate 14 14 Blood Pressure 118/65 Pulse Oximetry 99 99 12/10/21 07:30 12/10/21 07:54 12/10/21 08:10 Pulse Rate 78 65 Respiratory Rate 22 19 Blood Pressure 145/81 H Pulse Oximetry 100 99 99 Oxygen Delivery Method Mechanical Ventilation Narrative Exam Narrative: surrogate for full exam is primary team Objective Labs Result Diagrams: 12/10/21 08:50 12/10/21 01:20 Labs: Laboratory Results - last 24 hr 12/09/21 12/09/21 12/09/21 20:36 21:17 22:45 WBC RBC Hgb Hct MCV MCH MCHC RDW Plt Count Neut % (Auto) Lymph % (Auto) [place] % (Auto) Eos % (Auto) Baso % (Auto) Neut # (Auto) Lymph # (Auto) [place] # (Auto) Eos # (Auto) Baso # (Auto) ABG pH 7.25 L* ABG pCO2 33.5 L ABG pO2 211 H ABG HCO3 15 L ABG Total CO2 16 L ABG O2 Saturation 100 ABG Base Excess -12.0 L FiO2 40 Sodium Potassium Chloride Carbon Dioxide BUN Creatinine Estimated GFR BUN/Creatinine Ratio Glucose Calcium Magnesium Total Bilirubin AST ALT Alkaline Phosphatase Total Protein Albumin Globulin Albumin/Globulin Ratio Lipase Nasal Screen MRSA (PCR) Negative for mrsa SARS-CoV-2 (PCR) Negative 12/10/21 12/10/21 12/10/21 01:20 01:20 01:20 WBC 20.7 H RBC 4.21 Hgb 13.1 Hct 38.4 MCV 91.2 MCH 31.0 MCHC 34.0 RDW 13.2 Plt Count 253 Neut % (Auto) 92.1 H Lymph % (Auto) 6.7 L [place] % (Auto) 1.1 L Eos % (Auto) 0.0 L Baso % (Auto) 0.1 Neut # (Auto) 08806 H Lymph # (Auto) 1400 [place] # (Auto) 200 Eos # (Auto) 0 Baso # (Auto) 0 ABG pH ABG pCO2 ABG pO2 ABG HCO3 ABG Total CO2 ABG O2 Saturation ABG Base Excess FiO2 Sodium 137 Potassium 4.0 Chloride 108 H Carbon Dioxide 17 L BUN 9 Creatinine 0.51 L Estimated GFR > 60 BUN/Creatinine Ratio 17.6 Glucose 150 H Calcium 8.3 L Magnesium 1.7 Total Bilirubin 0.6 AST 22 ALT 23 Alkaline Phosphatase 61 Total Protein 6.9 Albumin 3.8 Globulin 3.1 Albumin/Globulin Ratio 1.2 Lipase 67 Nasal Screen MRSA (PCR) SARS-CoV-2 (PCR) 12/10/21 12/10/21 01:50 08:50 WBC 18.1 H RBC 4.46 Hgb 14.2 Hct 41.1 MCV 92.2 MCH 31.8 MCHC 34.5 RDW 13.4 Plt Count 236 Neut % (Auto) 92.7 H Lymph % (Auto) 5.8 L [place] % (Auto) 1.5 L Eos % (Auto) 0.0 L Baso % (Auto) 0.0 Neut # (Auto) 94884 H Lymph # (Auto) 1100 [place] # (Auto) 300 Eos # (Auto) 0 Baso # (Auto) 0 ABG pH 7.49 H ABG pCO2 22.8 L* ABG pO2 177 H ABG HCO3 17 L ABG Total CO2 18 L ABG O2 Saturation 100 ABG Base Excess -6.0 L FiO2 30 Sodium Potassium Chloride Carbon Dioxide BUN Creatinine Estimated GFR BUN/Creatinine Ratio Glucose Calcium Magnesium Total Bilirubin AST ALT Alkaline Phosphatase Total Protein Albumin Globulin Albumin/Globulin Ratio Lipase Nasal Screen MRSA (PCR) SARS-CoV-2 (PCR) Assessment & Plan Assessment and plan (1) Enzyme disorder: Problem details: 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
[2021-12-10] MEDS: ENOXAPARIN 40 MG/0.4 ML SYRINGE SUBCUT (09:12)
[2021-12-10] MEDS: FAMOTIDINE 20 MG/2 ML VIAL IV (09:12)
[2021-12-10 09:15] LABS: BUN Creatinine Ratio 16.4 (6-22); Blood Urea Nitrogen 9 mg/dL (7-17); Calcium 8.8 mg/dL (8.4-10.2); Carbon Dioxide 18 mmol/L (22-32); Chloride 108 mmol/L (98-107); Estimated Glomerular Filt Rate > 60 mL/min (>60); Glucose 133 mg/dL (70-100); HEMOLYSIS 29 (0-50); Potassium 4.4 mmol/L (3.4-5.1); Sodium 140 mmol/L (137-145)
--- NOTE | 2021-12-10 09:38 | CM.DANOTE ---
Initial DCP Assessment Note Pt is a 36 yo female, resident of [place], arrives in anaphylactic shock after consuming alcohol and shellfish; requiring intubation for airway protection. Patient extubated this morning and doing well, possible DC home tomorrow per RN PCP: None listed Payer: [facility] Reviewed chart, met w/patient, fiance and friend at bedside, introduced role. Patient recently extubated, doing very well, talking, denies any discomfort. Patient indp and active at baseline. Patient eager to discharge home w/friends and family upon discharge and denies needs at this time, appreciative for the visit. No barriers identified at this time to patient's safe discharge home w/family to assist CHINTAN Rausch Discharge Planning/Care Management CM Discharge Assessment Start: 12/10/21 09:32 Freq: Status: Active Protocol: Document 12/10/21 09:32 JOSE ALBERTO (Rec: 12/10/21 09:38 [id number]) Discharge Planning Assessment Assigned Group Leader CHINTAN Oconnor DPOA/Assigned Designee Name linda Monroy Contact Information [phone] Advance Directives? No History Provided By Patient,Significant Other, Medical Record Prior Living Arrangements Apartment/Condo Household Members significant other Type of transporation used prior to Drives own vehicle admit Independent with ADL's Yes Is patient alert and oriented? Yes Barriers to Discharge No Discharge Plan Home Transportation Arrangement Linda Referrals Initiated None needed
--- NOTE | 2021-12-10 13:32 | PC.NURSE ---
Shift Note: Pt immediately placed on sedation vacation @ change of shift. Pt woke cooperative and writing notes. Plan explained to patient and she indicates understanding. She was able to make her needs known and was calm during the weaning trial. VSS, pt placed on pressure support per RT after checking for air leak. Tele-cloth sander called and videoed into the room. OK to be extubated. After extubation placed on aerosol mask, then given ice chips. after evaluating swallow, clear liquids offered. Fan removed, subsequently up to the BR to void. VSS remained stable, discharged ambulatory with family member.
--- NOTE | 2021-12-10 19:44 | P.DS_ITS ---
History of Present Illness History of Present Illness Date Patient Seen: 12/10/21 Time Patient Seen: 11:00 Chief complaint: allergic reaction, SOB Narrative: Elidia Triana?is a 36-year-old female with history of migraines, shellfish and alcohol allergy (which she reported as usually just gets itchy).? She had both shellfish and alcohol today at the same time about an hour prior to arrival in the ED, about 30 minutes after that developed cough some narrowing or tightness sensation in her upper airway some shortness of breath in her chest and flushing.?In the ED the patient denied any hives.?She complained of coughing and vomited x1.? She initially denied lip or tongue swelling, chest pain, diarrhea, and that her chest did not feel as tight as previous allergic reactions. Dr. Leach ED reported that the patient had taken approximately a total of 100 mg of Benadryl, 5 doses of epinephrine, a dose of famotidine, and 125 mg of methylprednisone.? Despite this the patient's airway continued to swell and the patient became tachycardic increasing shortness of breath and work of breathing.? The patient was alert and orientated and consented to intubation. At the time of admit patient was afebrile temp 98.2?, hypertensive BP 159/72, tachycardic HR 144, and on a ventilator.? No labs had been completed in ED or in chart at the time of admit. I requested stat labs be completed from Dr. Leach.? Patient admitted for acute respiratory failure secondary to anaphylactic shock resulting in intubation, ICU observation.? Upon admit examination patient is on a propofol drip and had received multiple fentanyl pushes is unconscious on a ventilator unable to participate in HPI, ROS, family history, surgical history or medications. ? Discharge Providers Provider Date of admission: 12/09/21 20:26 Discharge Date: 12/10/21 Consults: 12/09/21 20:31 Consult to Tele-geographic information scientist Routine Comment: Consulting Provider: Michael Tele-intensivists Reason for consultation: [employer] services Has provider been notified: Yes 12/09/21 20:42 Consult to Dietitian, Adult Routine Comment: Reason For Exam: Patient on Ventilator and NPO Discharge provider: [place] Bob DO Summary Hospital Course Discharge Diagnosis: Acute respiratory failure secondary to anaphylaxis from exposure to shellfish and alcohol, acute, with elevated blood pressure and tachycardia, acute, present on admission Hospital Course: Elidia Issais a 36-year-old female with history of migraines, shellfish and alcohol allergy, who was reported to have an intake of both shellfish and al cohol today, presented to the ED developed acute respiratory distress secondary to anaphylaxis, and was quickly intubated.? Was given decadron and able to extubate the next day without issue. Patient felt well and able to breath normally and satted 100% on room air. Was discharged on 5 additional days of decadron and given script for 10 epi pens and counseled to strictly avoid alcohol and shellfish. Time Spent with Patient Time spent: Greater than 30 minutes Exam Vital Signs (past 8 hours): Oxygen Delivery Method Mechanical Ventilation Oxygen Flow Rate 0 Narrative Exam Narrative: GEN: no acute distress, now extubated HEENT: moist mucous membranes, PERRL NECK: trachea midline, no JVD CV: regular rate and rhythm, no murmurs PULM: clear bilaterally ABD: soft, nontender, nondistended, no organomegaly EXT: warm and well perfused with no edema NEURO: awake, alert, oriented, no focal deficits Objective Labs Result Diagrams: 12/10/21 08:50 12/10/21 08:50 Labs: Laboratory Results - last 24 hr 12/09/21 12/09/21 12/09/21 20:36 21:17 22:45 WBC RBC Hgb Hct MCV MCH MCHC RDW Plt Count Neut % (Auto) Lymph % (Auto) [place] % (Auto) Eos % (Auto) Baso % (Auto) Neut # (Auto) Lymph # (Auto) [place] # (Auto) Eos # (Auto) Baso # (Auto) ABG pH 7.25 L* ABG pCO2 33.5 L ABG pO2 211 H ABG HCO3 15 L ABG Total CO2 16 L ABG O2 Saturation 100 ABG Base Excess -12.0 L FiO2 40 Sodium Potassium Chloride Carbon Dioxide BUN Creatinine Estimated GFR BUN/Creatinine Ratio Glucose Calcium Magnesium Total Bilirubin AST ALT Alkaline Phosphatase Total Protein Albumin Globulin Albumin/Globulin Ratio Lipase Nasal Screen MRSA (PCR) Negative for mrsa SARS-CoV-2 (PCR) Negative 12/10/21 12/10/21 12/10/21 01:20 01:20 01:20 WBC 20.7 H RBC 4.21 Hgb 13.1 Hct 38.4 MCV 91.2 MCH 31.0 MCHC 34.0 RDW 13.2 Plt Count 253 Neut % (Auto) 92.1 H Lymph % (Auto) 6.7 L [place] % (Auto) 1.1 L Eos % (Auto) 0.0 L Baso % (Auto) 0.1 Neut # (Auto) 09189 H Lymph # (Auto) 1400 [place] # (Auto) 200 Eos # (Auto) 0 Baso # (Auto) 0 ABG pH ABG pCO2 ABG pO2 ABG HCO3 ABG Total CO2 ABG O2 Saturation ABG Base Excess FiO2 Sodium 137 Potassium 4.0 Chloride 108 H Carbon Dioxide 17 L BUN 9 Creatinine 0.51 L Estimated GFR > 60 BUN/Creatinine Ratio 17.6 Glucose 150 H Calcium 8.3 L Magnesium 1.7 Total Bilirubin 0.6 AST 22 ALT 23 Alkaline Phosphatase 61 Total Protein 6.9 Albumin 3.8 Globulin 3.1 Albumin/Globulin Ratio 1.2 Lipase 67 Nasal Screen MRSA (PCR) SARS-CoV-2 (PCR) 12/10/21 12/10/21 12/10/21 01:50 08:50 08:50 WBC 18.1 H RBC 4.46 Hgb 14.2 Hct 41.1 MCV 92.2 MCH 31.8 MCHC 34.5 RDW 13.4 Plt Count 236 Neut % (Auto) 92.7 H Lymph % (Auto) 5.8 L [place] % (Auto) 1.5 L Eos % (Auto) 0.0 L Baso % (Auto) 0.0 Neut # (Auto) 34415 H Lymph # (Auto) 1100 [place] # (Auto) 300 Eos # (Auto) 0 Baso # (Auto) 0 ABG pH 7.49 H ABG pCO2 22.8 L* ABG pO2 177 H ABG HCO3 17 L ABG Total CO2 18 L ABG O2 Saturation 100 ABG Base Excess -6.0 L FiO2 30 Sodium 140 Potassium 4.4 Chloride 108 H Carbon Dioxide 18 L BUN 9 Creatinine 0.55 Estimated GFR > 60 BUN/Creatinine Ratio 16.4 Glucose 133 H Calcium 8.8 Magnesium Total Bilirubin AST ALT Alkaline Phosphatase Total Protein Albumin Globulin Albumin/Globulin Ratio Lipase Nasal Screen MRSA (PCR) SARS-CoV-2 (PCR) [facility] Medical History Chronic migraine Enzyme disorder History of shingles Shellfish allergy Social History household members: significant other Smoking Status: Never smoker alcohol intake: current Discharge Plan Discharge Plan Patient Disposition: Home Provider Discharge Comment: You suffered a severe allergic reaction to shellfish, alcohol or likely both. You required intubation in the ICU for one night and were given steroids. Please complete 5 more days of oral steroids. I've sent 10 epi pens to have on hand but I would try to avoid alcohol and shellfish from now on. Discharge orders & Medications Prescriptions: New epinephrine 0.3 mg/0.3 mL auto-injector 0.3 mg IM Q5-15M PRN (Reason: anaphylaxis) Qty: 10 0RF Rx Instructions: do not exceed 3 doses per episode Visit Report/Discharge Packet Instructions: Anaphylaxis, DI for Anaphylaxis Quality VTE Deep Vein Thrombosis/Pulmonary Embolism Present on Admission: No
== END 2021-12-10 13:40 | disposition home or self-care (01) | DRG 915 ==
LOC: ED 20:23 → AC 20:35 → ICU 21:21 → AC 04-30 13:22 → ICU 04-30 13:22
PROVIDERS: Admitting Provider Nurse Practitioner Family; Emergency Provider Emergency Medicine; Visit Provider Nurse Practitioner Family
DX: T78.02XA Anaphylactic reaction due to shellfish (crustaceans), initial encounter (principal); J96.00 Acute respiratory failure, unspecified whether with hypoxia or hypercapnia; E87.2 Acidosis; T78.09XA Anaphylactic reaction due to other food products, initial encounter; E87.8 Other disorders of electrolyte and fluid balance, not elsewhere classified; Z20.822 Contact with and (suspected) exposure to COVID-19
CPT/HCPCS: 36415; 36569; 36600; 71045; 80048; 80053; 82805; 83690; 83735; 85025; 87070; 87205; 87635; 87797; 94002; 94003; 94640; 94799; 96372; 96374; 96375; 99285; 99291; 99292; C9803; G0378; J0171; J1100; J1200; J1650; J2250; J2405; J2704; J2930; J3010